=== PATIENT | female | born 1970 | race Caucasian/White ===

== ENCOUNTER → 2020-11-19 | Outpatient (CLI) | payer BC ==
[2020-11-19 11:13] LABS: HEMOGLOBIN 10.1 gm/dl (12.3-15.3); RED BLOOD COUNT 4.35 M/UL (4.00-5.10); WHITE BLOOD COUNT 8.9 K/UL (4.5-11.0)
[2020-11-19 11:36] LABS: BUN/CREATININE RATIO 12 (0-10)
== END ==
LOC: LAB 10:47
PROVIDERS: Nurse Practitioner Family
DX: D50.9 Iron deficiency anemia, unspecified (principal); E03.9 Hypothyroidism, unspecified; I10 Essential (primary) hypertension; K21.9 Gastro-esophageal reflux disease without esophagitis
CPT/HCPCS: 36415; 80053; 80061; 84439; 84443; 85025

== ENCOUNTER → 2021-07-29 | Outpatient (CLI) | payer BC ==
[2021-07-29 11:43] LABS: HEMOGLOBIN 9.8 gm/dl (12.3-15.3); RED BLOOD COUNT 4.3 M/UL (4.00-5.10); WHITE BLOOD COUNT 8.1 K/UL (4.5-11.0)
[2021-07-29 12:05] LABS: BUN/CREATININE RATIO 14 (0-10)
== END ==
LOC: LAB 10:32
PROVIDERS: Nurse Practitioner Family
DX: D50.9 Iron deficiency anemia, unspecified (principal); E03.9 Hypothyroidism, unspecified; I10 Essential (primary) hypertension; K21.9 Gastro-esophageal reflux disease without esophagitis
CPT/HCPCS: 80053; 80061; 84439; 84443; 85025

== ENCOUNTER → 2021-11-23 | Outpatient (CLI) | payer BC ==
[2021-11-23 12:54] LABS: HEMOGLOBIN 9.5 gm/dl (12.3-15.3); RED BLOOD COUNT 4.27 M/UL (4.00-5.10); WHITE BLOOD COUNT 7.3 K/UL (4.5-11.0)
[2021-11-24 07:11] LABS: A/G RATIO 1.3 (1.2-2.2); ALKALINE PHOSPHATASE, S 107 IU/L (44-121); ALT (SGPT) 17 IU/L (0-32); AST (SGOT) 18 IU/L (0-40); BILIRUBIN, TOTAL 0.3 mg/dL (0.0-1.2); BUN 9 mg/dL (6-24); BUN/CREATININE RATIO 10 (9-23); C-REACTIVE PROTEIN, QUANT 10 mg/L (0-10); CALCIUM, SERUM 8.7 mg/dL (8.7-10.2); CARBON DIOXIDE, TOTAL 21 mmol/L (20-29); CHLORIDE, SERUM 104 mmol/L (96-106); CHOLESTEROL, TOTAL 157 mg/dL (100-199); CREATININE, SERUM 0.93 mg/dL (0.57-1.00); EGFR IF AFRICN AM 82 (>59); EGFR IF NONAFRICN AM 71 (>59); ESTIM. AVG GLU (EAG) 120 mg/dL (.); GLOBULIN, TOTAL 3.2 g/dL (1.5-4.5); GLUCOSE, SERUM 74 mg/dL (65-99); HDL CHOLESTEROL 53 mg/dL (>39); HEMOGLOBIN A1C 5.8 % (4.8-5.6); LDL CHOLESTEROL CALC 92 mg/dL (0-99); LDL/HDL RATIO 1.7 ratio (0.0-3.2); POTASSIUM, SERUM 4.5 mmol/L (3.5-5.2); PROTEIN, TOTAL, SERUM 7.3 g/dL (6.0-8.5); RHEUMATOID ARTHRITIS FACTOR <10.0 IU/mL (<14.0); SODIUM, SERUM 141 mmol/L (134-144); TRIGLYCERIDES 60 mg/dL (0-149)
[2021-11-25 12:14] LABS: AMPHETAMINES, URINE Negative ng/mL (Cutoff=1000); BARBITURATE Negative ng/mL (Cutoff=200); BENZODIAZEPINES Negative ng/mL (Cutoff=200); CANNABINOIDS Negative ng/mL (Cutoff=20); COCAINE (METABOLITE) Negative ng/mL (Cutoff=300); CREATININE 198.7 mg/dL (20.0-300.0); MEPERIDINE Negative ng/mL (Cutoff=200); METHADONE Negative ng/mL (Cutoff=300); OPIATES Negative ng/mL (Cutoff=300); PHENCYCLIDINE Negative ng/mL (Cutoff=25); PROPOXYPHENE Negative ng/mL (Cutoff=300)
== END ==
LOC: LAB 11:21
PROVIDERS: Nurse Practitioner Family
DX: M25.9 Joint disorder, unspecified (principal); Z51.81 Encounter for therapeutic drug level monitoring
CPT/HCPCS: 36415; 80053; 80061; 80307; 83036; 84439; 84443; 85025; 86038; 86140; 86431

== ENCOUNTER → 2022-06-05 | Outpatient (CLI) | payer BC | LOC: MAMO 14:15 | DX: Z12.31 Encounter for screening mammogram for malignant neoplasm of breast (principal) | CPT/HCPCS: 77063; 77067 ==

== ENCOUNTER → 2022-06-10 | Outpatient (CLI) | payer BC ==
[2022-06-10 09:41] LABS: HEMOGLOBIN 10.6 gm/dl (12.3-15.3); RED BLOOD COUNT 4.43 M/UL (4.00-5.10); WHITE BLOOD COUNT 9.2 K/UL (4.5-11.0)
[2022-06-10 10:06] LABS: BUN/CREATININE RATIO 14 (0-10)
[2022-06-12 13:10] LABS: AMPHETAMINES, URINE Negative ng/mL (Cutoff=1000); BARBITURATE Negative ng/mL (Cutoff=200); BENZODIAZEPINES Negative ng/mL (Cutoff=200); CANNABINOIDS Negative ng/mL (Cutoff=20); COCAINE (METABOLITE) Negative ng/mL (Cutoff=300); CREATININE 118.7 mg/dL (20.0-300.0); MEPERIDINE Negative ng/mL (Cutoff=200); METHADONE Negative ng/mL (Cutoff=300); OPIATES Negative ng/mL (Cutoff=300); PHENCYCLIDINE Negative ng/mL (Cutoff=25); PROPOXYPHENE Negative ng/mL (Cutoff=300)
== END ==
LOC: LAB 09:11
PROVIDERS: Nurse Practitioner Family
DX: Z51.81 Encounter for therapeutic drug level monitoring (principal); D50.9 Iron deficiency anemia, unspecified; E03.9 Hypothyroidism, unspecified; K21.9 Gastro-esophageal reflux disease without esophagitis; L65.9 Nonscarring hair loss, unspecified; R51.9 Headache, unspecified; Z79.899 Other long term (current) drug therapy
CPT/HCPCS: 36415; 80053; 80061; 80307; 83036; 84439; 84443; 85025

== ENCOUNTER → 2022-06-13 | Outpatient (CLI) | payer BC | LOC: US 14:15 | DX: N60.01 Solitary cyst of right breast (principal) | CPT/HCPCS: 76641-RT ==